=== PATIENT | female | born 1980 | race Caucasian/White ===

== ENCOUNTER 2023-12-24 08:05 | Outpatient (CLI) | payer BC | END 2023-12-24 23:59 | disposition home or self-care (01) | LOC: RAD 08:05 | PROVIDERS: ATTEND Family Medicine Sports Medicine | DX: S73.192A Other sprain of left hip, initial encounter (principal); M16.12 Unilateral primary osteoarthritis, left hip; M25.552 Pain in left hip; M25.852 Other specified joint disorders, left hip; X58.XXXA Exposure to other specified factors, initial encounter; Y93.89 Activity, other specified; Y92.89 Other specified places as the place of occurrence of the external cause; Y99.8 Other external cause status | CPT/HCPCS: 73700 ==

== ENCOUNTER 2024-04-03 06:24 | Outpatient (CLI) | payer BC ==
[2024-04-03] MEDS ORDERED: LIDOcaine 1%/PF 5ML 10 MG/ML VIAL ONE (06:30)
[2024-04-03] MEDS ORDERED: iohexol 300 MG/1 ML 50ml polymer ONE (06:31)
[2024-04-03] MEDS ORDERED: LIDOcaine 1% 30ml preserv. free vial ONE (06:31)
[2024-04-03] MEDS ORDERED: GADOTERATE MEGLUMINE 7.5 MMOL/15 ML VIAL IV ONE (06:31)
== END 2024-04-03 23:59 | disposition home or self-care (01) ==
LOC: MRI 06:24
PROVIDERS: ATTEND Orthopaedic Surgery
DX: S73.192A Other sprain of left hip, initial encounter (principal); M84.352A Stress fracture, left femur, initial encounter for fracture; M16.11 Unilateral primary osteoarthritis, right hip; M25.852 Other specified joint disorders, left hip; X58.XXXA Exposure to other specified factors, initial encounter; Y93.89 Activity, other specified; Y92.89 Other specified places as the place of occurrence of the external cause; Y99.8 Other external cause status
CPT/HCPCS: 27093; 73722; 77002; A9575; J3490; Q9967; 73525